=== PATIENT | male | born 1980 | race Caucasian/White ===

== ENCOUNTER 2018-01-11 12:15 | Emergency (ER) | payer OTHER ==
[~2018-01-11] VITALS: Ht 190.5 cm; Wt 60.0 kg
[2018-01-11 12:29] VITALS: BP 129/79; PULSE 98; RESP 17; TEMP 98.9; O2SAT 98
[2018-01-11 13:21] LABS: AUTOMATED NEUTROPHIL # 4.2 TH/MM3 (1.8-7.7); BASOPHIL # 0.1 TH/MM3 (0-0.2); BASOPHIL % 0.9 % (0.0-2.0); EOSINOPHIL # 0.4 TH/MM3 (0-0.4); EOSINOPHIL % 5.9 % (0.0-4.0); HEMATOCRIT 44.9 % (39.0-51.0); HEMOGLOBIN 15.4 GM/DL (13.0-17.0); LYMPH % 19.6 % (9.0-44.0); LYMPHOCYTE # 1.3 TH/MM3 (1.0-4.8); MEAN CELL VOLUME 89.7 FL (80.0-100.0); MEAN CORPUSCULAR HEMOGLOBIN 30.8 PG (27.0-34.0); MEAN CORPUSCULAR HGB CONC 34.4 % (32.0-36.0); MEAN PLATELET VOLUME 8.8 FL (7.0-11.0); MONO % 8.1 % (0.0-8.0); MONOCYTE # 0.5 TH/MM3 (0-0.9); NEUT % 65.5 % (16.0-70.0); PLATELET COUNT 191 TH/MM3 (150-450); RED BLOOD COUNT 5.01 MIL/MM3 (4.50-5.90); RED CELL DISTRIBUTION WIDTH 13.4 % (11.6-17.2); WHITE BLOOD COUNT 6.4 TH/MM3 (4.0-11.0)
--- NOTE | 2018-01-11 13:38 | PD ---
HPI Chief Complaint: GI Complaint Time Seen by Provider: 13:36 Travel History International Travel<30 days: No Contact w/Intl Traveler<30days: No Traveled to known affect area: No History of Present Illness HPI Patient comes in complaining of nausea vomiting and diarrhea that has been ongoing for the past few days. Patient stated that it originally started with diarrhea, which was initially watery clear, but which eventually turned reddish and more bloody looking. He never passed any clots. Patient currently denies any abdominal pain, fever, rash, chest pain, neck pain, headache, also denies any associated sore throat/cough/runny. No alleviating or aggravating factors. Patient states that he has returned appetite but is here for further evaluation and is afraid that he may have a an infection. Last normal meal was 2 days ago when he had a TV dinner. States allergy to peanut but no medications Past medical history significant for cystitis smoker history PFSH Past Medical History Diminished Hearing: No Genitourinary: Yes (cystitis) Tetanus Vaccination: > 5 Years Influenza Vaccination: Yes Past Surgical History Surgical History: No Previous Surgery Social History Alcohol Use: No Tobacco Use: Yes (1/2ppd) Substance Use: No Allergies-Medications (Allergen,Severity, Reaction): Coded Allergies: peanut (Verified Allergy, Severe, 01/11/18) sob, vomiting tree nut (Verified Allergy, Severe, 01/11/18) sob , vomiting Reported Meds & Prescriptions Reported Meds & Active Scripts Active No Active Prescriptions or Reported Medications Review of Systems General / Constitutional: No: Fever Eyes: No: Visual changes HENT: No: Headaches Cardiovascular: No: Chest Pain or Discomfort Respiratory: No: Shortness of Breath Gastrointestinal: Positive: Nausea, Vomiting, Diarrhea Genitourinary: No: Dysuria Musculoskeletal: No: Pain Skin: No Rash Neurologic: No: Weakness Psychiatric: No: Depression Endocrine: No: Polydipsia Hematologic/Lymphatic: No: Easy Bruising Physical Exam Narrative GENERAL: SKIN: Warm and dry. HEAD: Atraumatic. Normocephalic. EYES: Pupils equal and round. No scleral icterus. No injection or drainage. ENT: No nasal bleeding or discharge. Mucous membranes pink and moist. NECK: Trachea midline. No JVD. CARDIOVASCULAR: Regular rate and rhythm. RESPIRATORY: No accessory muscle use. Clear to auscultation. Breath sounds equal bilaterally. GASTROINTESTINAL: Abdomen soft, non-tender, nondistended. Hyperactive bowel sounds MUSCULOSKELETAL: Extremities without clubbing, cyanosis, or edema. No obvious deformities. NEUROLOGICAL: Awake and alert. No obvious cranial nerve deficits. Motor grossly within normal limits. Five out of 5 muscle strength in the arms and legs. Normal speech. PSYCHIATRIC: Appropriate mood and affect; insight and judgment normal. Data Data Last Documented VS Vital Signs Date Time Temp Pulse Resp B/P (MAP) Pulse Ox O2 Delivery O2 Flow Rate FiO2 01/11/18 13:50 97 Room Air 01/11/18 12:29 98.9 98 17 129/79 (96) Orders Orders Complete Blood Count With Diff (01/11/18 12:32) Comprehensive Metabolic Panel (01/11/18 12:32) Urinalysis - C+S If Indicated (01/11/18 12:32) Lipase (01/11/18 12:32) Iv Access Insert/Monitor (01/11/18 13:39) Ecg Monitoring (01/11/18 13:39) Oximetry (01/11/18 13:39) NPO (01/11/18 13:39) Morphine Inj (Morphine Inj) (01/11/18 13:45) Metronidazole 500 Mg Inj (Flagyl 500 Mg (01/11/18 13:45) Sodium Chlor 0.9% 1000 Ml Inj (Ns 1000 M (01/11/18 13:39) Sodium Chloride 0.9% Flush (Ns Flush) (01/11/18 13:45) Ondansetron Odt (Zofran Odt) (01/11/18 14:00) Labs Laboratory Tests Test 01/11/18 13:00 White Blood Count 6.4 TH/MM3 Red Blood Count 5.01 MIL/MM3 Hemoglobin 15.4 GM/DL Hematocrit 44.9 % Mean Corpuscular Volume 89.7 FL Mean Corpuscular Hemoglobin 30.8 PG Mean Corpuscular Hemoglobin Concent 34.4 % Red Cell Distribution Width 13.4 % Platelet Count 191 TH/MM3 Mean Platelet Volume 8.8 FL Neutrophils (%) (Auto) 65.5 % Lymphocytes (%) (Auto) 19.6 % Monocytes (%) (Auto) 8.1 % Eosinophils (%) (Auto) 5.9 % Basophils (%) (Auto) 0.9 % Neutrophils # (Auto) 4.2 TH/MM3 Lymphocytes # (Auto) 1.3 TH/MM3 Monocytes # (Auto) 0.5 TH/MM3 Eosinophils # (Auto) 0.4 TH/MM3 Basophils # (Auto) 0.1 TH/MM3 CBC Comment DIFF FINAL Differential Comment Blood Urea Nitrogen 9 MG/DL Creatinine 0.89 MG/DL Random Glucose 102 MG/DL Total Protein 7.5 GM/DL Albumin 4.1 GM/DL Calcium Level 9.1 MG/DL Alkaline Phosphatase 106 U/L Aspartate Amino Transf (AST/SGOT) 16 U/L Alanine Aminotransferase (ALT/SGPT) 37 U/L Total Bilirubin 0.9 MG/DL Sodium Level 140 MEQ/L Potassium Level 3.7 MEQ/L Chloride Level 106 MEQ/L Carbon Dioxide Level 24.2 MEQ/L Anion Gap 10 MEQ/L Estimat Glomerular Filtration Rate 97 ML/MIN Lipase 90 U/L [facility] Medical Decision Making Medical Screen Exam Complete: Yes Emergency Medical Condition: Yes Medical Record Reviewed: Yes Differential Diagnosis Gastroenteritis versus colitis versus diverticulitis versus electrolyte abnormalities versus pancreatitis Narrative Course CBC shows no leukocytosis, no anemia, no left shift, and normal platelet count Electrolytes are all within normal limits, normal kidney liver and pancreatic functions. Diagnosis Primary Impression: Gastroenteritis Patient Instructions: Gastroenteritis (ED), General Instructions Scripts Tramadol (Ultram) 50 Mg Tab 50 MG PO Q6H Y for PAIN, #12 TAB 0 Refills Prov: Jonathan Mckinley MD 01/11/18 Metronidazole (Flagyl) 500 Mg Tab 500 MG PO TID for Infection for 5 Days, #15 TAB 0 Refills Prov: Jonathan Mckinley MD 01/11/18 Ondansetron Odt (Zofran Odt) 4 Mg Tab 4 MG SL Q6HR Y for Nausea/Vomiting, #16 TAB 0 Refills Prov: Jonathan Mckinley MD 01/11/18 Disposition: 01 DISCHARGE HOME Condition: Stable Jonathan Mckinley MD Jan 11, 2018 13:38
[2018-01-11] MEDS ORDERED: SODIUM CHLOR 0.9% 1000 ML INJ 1,000 ML IV SCH (13:39)
[2018-01-11] MEDS ORDERED: metroNIDAZOLE 500 MG INJ 100 ML IV ONE (13:45)
[2018-01-11] MEDS ORDERED: MORPHINE SULFATE 4 MG/ML INJ IV PUSH ONE (13:45)
[2018-01-11] MEDS ORDERED: SODIUM CHLORIDE 0.9% FLUSH 10 ML FLUSH IV FLUSH PRN (13:45)
[2018-01-11 13:50] VITALS: O2SAT 97
[2018-01-11 13:53] LABS: ALBUMIN 4.1 GM/DL (3.4-5.0); AST (GOT) 16 U/L (15-37); BICARBONATE 24.2 MEQ/L (21.0-32.0); BLOOD UREA NITROGEN 9 MG/DL (7-18); CALCIUM 9.1 MG/DL (8.5-10.1); CHLORIDE 106 MEQ/L (98-107); CREATININE 0.89 MG/DL (0.60-1.30); GLOMERULAR FILTRATION RATE 97 ML/MIN (>89); GLUCOSE,RANDOM 102 MG/DL (74-106); SODIUM (NA) 140 MEQ/L (136-145)
[2018-01-11 13:56] LABS: ALKALINE PHOSPHATASE 106 U/L (45-117); ALT (GPT) 37 U/L (12-78); TOTAL BILIRUBIN ADULT 0.9 MG/DL (0.2-1.0); TOTAL PROTEIN 7.5 GM/DL (6.4-8.2)
[2018-01-11] MEDS ORDERED: ONDANSETRON ODT 4 MG TAB PO ONE (14:00)
[2018-01-11] MEDS ORDERED: METR-1 PO (15:13)
[2018-01-11] MEDS ORDERED: ZOFR4TAB3 SL (15:13)
[2018-01-11] MEDS ORDERED: TRAM50 PO (15:13)
[2018-01-11 16:27] LABS: AMORPHOUS SEDIMENT, URINE RARE; BILIRUBIN, URINE NEG (NEG); BLOOD, URINE NEG (NEG); GLUCOSE,URINE NEG (NEG); KETONE, URINE 40 mg/dL (NEG); NITRITE,URINE NEG (NEG); PH, URINE 8.5 (5.0-8.5); SQUAMOUS EPITHELIAL CELL URINE 1 /hpf (0-5); URINE COLOR YELLOW (YELLW/STRAW); URINE LEUKOCYTE ESTERASE NEG (NEG)
[2018-01-11 16:58] VITALS: BP 108/63
== END 2018-01-11 16:59 | disposition home or self-care (01) ==
LOC: NEPD 12:15
DX: K52.9 Noninfective gastroenteritis and colitis, unspecified (principal); F17.200 Nicotine dependence, unspecified, uncomplicated
CPT/HCPCS: 80053; 81001; 83690; 85025; 96365; 96375; 99284; J2270; J7030